=== PATIENT | female | born 1960 | race Caucasian/White ===

== ENCOUNTER 2018-08-25 09:26 | Emergency (ER) ==
[2018-08-25 09:36] VITALS: BP 156/094; TEMP 99.8; BMI 22.1
--- NOTE | 2018-08-25 09:42 | ED.PDOC ---
General ED Provider: Dr. BLAS GALLEGOS Chief Complaint: Shortness of Air Stated Complaint: Posterior R lower pain - rib area - denies injury or falls - does no heavy lifting Time Seen by Physician: 09:42 Mode of Arrival: Walk-In Information Source: Patient Exam Limitations: No limitations Nursing and Triage Documentation Reviewed and Agree: Yes Does patient meet sepsis criteria?: No System Inflammatory Response Syndrome: Not Applicable Sepsis Protocol: For patient's 13 years and over: Temp is 96.8 and below OR 101 and greater Pulse >90 BPM Resp >20/minute Acutely Altered Mental Status Are patient's symptoms suggestive of a new infection, such as: -Pneumonia -Skin, Soft Tissue -Endocarditis -UTI -Bone, Joint Infection -Implantable Device -Acute Abdominal Infection -Wound Infection -Meningitis -Blood Stream Catheter Infection -Unknown Review of Systems - Review Of Systems Constitutional: Reports: No symptoms Respiratory: Reports: No symptoms, Short of air (her usual - not a new complaint ) Cardiac: Reports: No symptoms All Other Systems: Reviewed and Negative Past Medical History - Past Medical History Previously Healthy: Yes Endocrine: Reports: None Cardiovascular: Reports: None Respiratory: Reports: COPD Hematological: Reports: None Gastrointestinal: Reports: None Genitourinary: Reports: None Neuro/Psych: Reports: Anxiety, Depression Musculoskeletal: Reports: Back Pain (Lower) Cancer: Reports: None Last Menstrual Period: none - Surgical History General Surgical History: Reports: Hysterectomy, Appendectomy, Cholecystectomy - Family History Family History: Reports: Unknown - Social History Smoking Status: Current some day smoker Hx Substance Use: No - Immunizations Tetanus Shot up to Date: No Physical Exam - Physical Exam Appearance: Well-appearing Critical Care Note - Critical Care Note Total Time (mins): 10 Course - Course Orders, Labs, Meds: Orders Category Date Time Status RIB, W/PA CHEST RIGHT Stat RADS 08/25/18 09:41 Completed Vital Signs: Temp Pulse Resp BP Pulse Ox 08/25/18 09:28 99.8 F H 97 H 24 156/094 H 97 Departure - Departure Time of Disposition: 11:53 Disposition: HOME SELF-CARE Discharge Problem: Chest wall pain Instructions: Chest Wall Pain (ED) Condition: Stable Pt referred to PMD for follow-up: Yes (Follow up as planned next week) IPMP verified?: No Additional Instructions: Take Ultram as prescribed; try heating pad to area. Follow up as planned with primary care next week Prescriptions: Tramadol HCl [Ultram] 50 mg PO Q6HR #10 tablet Home Medications: Ambulatory Orders Tramadol HCl [Ultram] 50 mg PO Q6HR #10 tablet 08/25/18
--- NOTE | 2018-08-25 10:22 | DI ---
EXAM: Chest and three-view right rib series HISTORY: Pain COMPARISON: Single-view chest 06/27/2014 FINDINGS: The right hemidiaphragm remains elevated. The cardiomediastinal silhouette is stable. Th ere are multiple old healed left-sided rib fractures. Evaluation of the right hip cage reveals no ev idence of fracture or bony abnormality. IMPRESSION: Stable elevation right hemidiaphragm. No acute right-sided rib fractures.
== END 2018-08-25 12:04 | disposition home or self-care (01) ==
LOC: ED 09:26
DX: R07.89 Other chest pain (principal); R06.02 Shortness of breath; F17.210 Nicotine dependence, cigarettes, uncomplicated
CPT/HCPCS: 99282

== ENCOUNTER 2018-11-11 09:24 | Outpatient (CLI) ==
--- NOTE | 2018-11-11 11:45 | CT ---
EXAM: CT of the right lower extremity without contrast COMPARISON: Right foot radiographs 10/22/2018. MRI of the right foot 10/09/2018. HISTORY: Right foot pain. Previous foot surgery. TECHNIQUE: Noncontrast CT images of the right foot and ankle were obtained. Axial reconstructions w ith sagittal and coronal reformats were provided. FINDINGS: There is diffuse demineralization. There is been previous attempted fusion at the calcane ocuboid articulation with fixation plate cortical fixation screws as well as staple extending along t he dorsal/lateral aspect of the joint. There is abnormal widening of the calcaneocuboid joint space measuring up to 0.6 cm extent without evidence of significant bony bridging and with chronic-appearin g deformity/erosive change of the articular surfaces at the articulation as noted on previous imaging . This may be degenerative in nature/related to osteolysis though inflammatory/infectious arthritis cannot be excluded as noted on previous MRI. There is some lucency extending adjacent to the screws with the more proximal of the screws within the cuboid extending along the articular surface. Well c orticated ossifications along the margins of the calcaneocuboid articulation related to sequela old t rauma/heterotopic ossification. Degenerative changes of the subtalar joint with most severe changes at the posterior facet. There is moderate to severe joint space narrowing at the talonavicular joint with subchondral cystic change/osteochondral lesion involving the medial corner of the talar dome me asuring 1.5 x 0.7 cm extent. Mild to moderate degenerative changes of the talonavicular and navicula r cuneiform articulations. Degenerative changes of the tarsometatarsal joints most severe at the fir st tarsometatarsal joint with chronic-appearing deformity of the base of the first metatarsal, favori ng sequela of old trauma without acute osseous injury at that site. Postoperative changes of the fir st metatarsal with hardware in place and evidence of previous osteotomy distally. Chronic-appearing deformity of the first metatarsal at that site. Chronic deformity of the distal second through fifth metatarsals which may represent sequela of old trauma/prior surgery. There is also some chronic-hermes earing deformity of the bases of the proximal phalanges at those sites with degenerative changes of t he metatarsophalangeal joints most severe at the first and second digits. Postoperative change of th e first proximal phalanx with a staple in place. Degenerative spurring at the interphalangeal joints with surgical absence of the distal portion of the fourth proximal phalanx. There is low-level subcutaneous edema without a definite drainable subcutaneous fluid collection or f ocal soft tissue gas. Soft tissue swelling is most pronounced along the plantar and medial aspect of the first metatarsophalangeal joint/first metatarsal head well as at the level of the heel. IMPRESSION: 1. Extensive postoperative changes of the ankle/hind-foot and forefoot as described in detail above. Incomplete bony bridging at the site of previous attempted fusion of the calcaneocuboid articulatio n with abnormal widening of the joint and chronic-appearing erosive change at that site. Ongoing inf ectious/inflammatory arthritis cannot be excluded as noted on prior MRI and correlation with labeled white blood cell study could be considered if clinically warranted. Chronic-appearing deformity of t he ankle/hind-foot, first metatarsal base and distal metatarsals which may represent sequela old trau ma or previous surgery. 2. Degenerative changes of the ankle/hind-foot, midfoot and forefoot as described above. Subchondra l cystic change/osteochondral lesion within the medial corner of the talar dome. 3. Subcutaneous edema with most pronounce soft tissue swelling adjacent to the first metatarsophalan geal joint and throughout the heel without a discrete drainable fluid collection. 4. Muscle atrophy.
== END 2018-11-11 09:25 | disposition home or self-care (01) ==
LOC: RAD 09:24
PROVIDERS: ATTEND Podiatrist
DX: M79.671 Pain in right foot (principal); Z98.890 Other specified postprocedural states